=== PATIENT | female | born 1965 ===

== ENCOUNTER → 2024-09-24 | Outpatient (CLI) | payer OTHER ==
[2024-10-04 09:16] LABS: HPV HIGH RISK BY TMA Not Detected; HPV SOURCE Cervical
== END | disposition home or self-care (01) ==
LOC: LAB SHORT 08:20 → LAB 08:20
PROVIDERS: Nurse Practitioner Family
DX: Z12.72 Encounter for screening for malignant neoplasm of vagina (principal)
CPT/HCPCS: 87624; G0123